=== PATIENT | female | born 1995 | race Hispanic/Latino ===

== ENCOUNTER 2017-01-17 11:28 | Emergency (ER) | payer OTHER ==
[~2017-01-17] VITALS: Ht 154.9 cm; Wt 91.1 kg
[2017-01-17 13:36] LABS: ADD MIUA? NO; BILIRUBIN NEGATIVE; BLOOD NEGATIVE; COLOR YELLOW ((YELLOW)); GLUCOSE (STRIP) NEGATIVE; KETONES NEGATIVE; LEUKOCYTES NEGATIVE; NITRITE NEGATIVE; PROTEIN (STRIP) 30; SPECIFIC GRAVITY 1.024 (1.000-1.030); UROBILINOGEN 0.2 MG/DL (0.2-1.0)
[2017-01-17 13:49] LABS: HEMATOCRIT 39.6 % (36.0-46.0); MCH 29.5 PG (29.0-34.0); MCHC 34.1 G/DL (30.0-36.0); MCV 86.5 FL (83-99); MEAN PLAT.VOLUME 8.6 uM^3 (9.5-12.4); PLATELET COUNT 352 K/uL (156-360); RBC DIS.WIDTH-CV 12.2 % (11.8-14.6); RBC DIS.WIDTH-SD 38.7 % (39-53); RED BLOOD COUNT 4.58 M/uL (3.80-5.20); WHITE BLOOD COUNT 8.7 K/uL (4.1-10.2)
[2017-01-17 13:56] LABS: D-DIMER ELISA < 150.00 ng/mLDDU (<230)
[2017-01-17 14:00] LABS: CHLORIDE 112 mEq/L (99-109); POTASSIUM 4.3 mEq/L (3.7-5.4); SODIUM 141 mEq/L (136-147)
[2017-01-17 14:02] LABS: GLUCOSE 94 mg/dL (70-99)
[2017-01-17 14:03] LABS: ANION GAP 9 MEQ/L (2-14)
[2017-01-17 14:04] LABS: TOTAL BILIRUBIN 0.3 mg/dL (0.0-1.0)
[2017-01-17 14:05] LABS: ALKALINE PHOSPHATASE 78 IU/L (3-129)
[2017-01-17 14:06] LABS: GFR ESTIMATE (CALCULATED) > 59 mL/min/
[2017-01-17 14:07] LABS: UREA NITROGEN (BUN) 8 mg/dL (9-23)
[2017-01-17 14:10] LABS: TROP-I INTERPRETATION NEGATIVE; TROPONIN-I < 0.01 ng/mL (0.0-0.30)
[2017-01-17 14:15] LABS: QUANTITATIVE HCG < 4.0 MIU/ML
[2017-01-17] MEDS ORDERED: DONNATAL1 TABLET PO (15:11)
[2017-01-17 15:45] VITALS: BP 121/92
== END 2017-01-17 15:49 | disposition home or self-care (01) ==
LOC: EME 11:28
PROVIDERS: Nurse Practitioner Family
DX: R07.9 Chest pain, unspecified (principal); Z83.3 Family history of diabetes mellitus; Z82.49 Family history of ischemic heart disease and other diseases of the circulatory system
CPT/HCPCS: 71020; 80053; 81003; 84484; 84702; 85027; 85379; 93005; 99281; 99285

== ENCOUNTER 2017-07-29 20:22 | Emergency (ER) | payer SELFPAY ==
[~2017-07-29] VITALS: Ht 172.7 cm; Wt 92.3 kg
[~2017-07-29 20:22] MED LIST: DONNATAL1 TABLET PO
[2017-07-29 21:07] LABS: HEMATOCRIT 43.8 % (36.0-46.0); HEMOGLOBIN 15.3 G/DL (11.9-15.5); MCH 30.3 PG (29.0-34.0); MCHC 34.9 G/DL (30.0-36.0); MCV 86.7 FL (83-99); PLATELET COUNT 337 K/uL (156-360); RBC DIS.WIDTH-CV 12.4 % (11.8-14.6); RBC DIS.WIDTH-SD 39.1 % (39-53); RED BLOOD COUNT 5.05 M/uL (3.80-5.20); WHITE BLOOD COUNT 12.8 K/uL (4.1-10.2)
[2017-07-29 21:16] LABS: CHLORIDE 108 mEq/L (99-109); POTASSIUM 3.8 mEq/L (3.7-5.4); SODIUM 137 mEq/L (136-147)
[2017-07-29 21:18] LABS: GLUCOSE 103 mg/dL (70-99)
[2017-07-29 21:22] LABS: CREATININE 0.8 mg/dL (0.6-1.3); GFR ESTIMATE (CALCULATED) > 59 mL/min/; UREA NITROGEN (BUN) 7 mg/dL (9-23)
[2017-07-29 21:28] LABS: TROP-I INTERPRETATION NEGATIVE; TROPONIN-I < 0.01 ng/mL (0.0-0.30)
[2017-07-29 21:30] LABS: QUANTITATIVE HCG < 4.0 MIU/ML
[2017-07-29 22:36] LABS: APPEARANCE SL.HAZY ((CLEAR)); BILIRUBIN NEGATIVE; BLOOD LARGE; COLOR YELLOW ((YELLOW)); GLUCOSE (STRIP) NEGATIVE; KETONES NEGATIVE; LEUKOCYTES NEGATIVE; NITRITE NEGATIVE; PROTEIN (STRIP) NEGATIVE; SPECIFIC GRAVITY 1.018 (1.000-1.030); UROBILINOGEN 0.2 MG/DL (0.2-1.0)
[2017-07-29 22:44] LABS: BACTERIA RARE /HPF; EPITHELIAL CELLS RARE /HPF; MUCUS TRACE /LPF; UCUL ADDED? NO; WHITE BLOOD CELLS 0-5 /HPF (0-5)
[2017-07-29 23:13] LABS: MONOSPOT (MONONUCLEOSIS SEROL) NEGATIVE
[2017-07-29] MEDS ORDERED: ZITHROMAX Z-PA250 MG PO (23:35)
[2017-07-30 00:27] VITALS: BP 123/89
== END 2017-07-30 01:00 | disposition home or self-care (01) ==
LOC: EME 20:22
PROVIDERS: Emergency Medicine
DX: B34.9 Viral infection, unspecified (principal); J02.9 Acute pharyngitis, unspecified; R50.9 Fever, unspecified
CPT/HCPCS: 71046; 80048; 81003; 83605; 84484; 84702; 85027; 86308; 87040; 87502; 87651 90; 93005; 99281; 99285; J1885; J7030

== ENCOUNTER 2017-10-19 14:35 | Emergency (ER) | payer SELFPAY ==
[~2017-10-19] VITALS: Ht 167.6 cm; Wt 94.3 kg
[~2017-10-19 14:35] MED LIST changes: +ZITHROMAX Z-PA250 MG PO
[2017-10-19] MEDS ORDERED: MOTRIN600 MG PO (16:50)
[2017-10-19 17:11] VITALS: BP 123/94
== END 2017-10-19 16:53 | disposition home or self-care (01) ==
LOC: EME 14:35
DX: S93.402A Sprain of unspecified ligament of left ankle, initial encounter (principal); M79.662 Pain in left lower leg
CPT/HCPCS: 93971; 99281; 99283